=== PATIENT | male | born 1960 | race Hispanic/Latino ===

== ENCOUNTER 2018-08-24 11:14 | Emergency (ER) | payer BC ==
[2018-08-24 11:28] VITALS: RESP 18
[2018-08-24 11:30] VITALS: BMI 26.3
[2018-08-24] MEDS ORDERED: Sodium Chloride 0.9% 1,000 ML IV STA (11:47)
[2018-08-24 12:20] LABS: BASO # 0.11 K/mm3 (0.0-2.0); BASO % 1.8 % (0.0-3.0); EOS # 0.3 (0.0-0.7); HEMOGLOBIN 15.8 g/dL (14.0-18.0); LYMPH # 2.1 (1.2-3.4); LYMPH % 32.8 % (22.0-35.0); MEAN CELL VOLUME 91.2 fl (80.0-105.0); MEAN CORPUSCULAR HEMOGLOBIN 30.3 pg (25.0-35.0); MEAN CORPUSCULAR HGB CONC 33.3 g/dl (31.0-37.0); MEAN PLATELET VOLUME 9.4 fl (7.0-11.0); MONO # 0.3 (0.1-0.6); MONO % 5.4 % (1.0-6.0); RBC 5.21 10^6/uL (3.5-6.1); RED CELL DISTRIBUTION WIDTH 13.4 % (11.5-14.5); WHITE BLOOD COUNT 6.3 10^3/uL (4.5-11.0)
--- NOTE | 2018-08-24 12:24 | ED PDOC ---
Arrival/HPI - General Chief Complaint: Syncope Time Seen by Provider: 08/24/18 11:39 Historian: Patient - History of Present Illness Narrative History of Present Illness (Text): 08/24/18 12:25 57 year old male, with no significant past medical history, who presents to the Emergency department s/p syncopal episode earlier today. Patient reports he could not pass urine 1 week ago, causing him to visit the urology office of Dr. Humphries. He reports he stood to give urine, when he felt nauseous and had "hot flashes", and soon after fainted. Patient states he currently feeling fine, and denies any symptoms currently. He denies any fever, chills, headache, shortness of breath, vomiting, chest pain, or any other complaints. Time/Duration: 1-3 hours Symptom Onset: Gradual Symptom Course: Unchanged Activities at Onset: Light Context: Home Past Medical History - Provider Review Nursing Documentation Reviewed: Yes - Infectious Disease Hx of Infectious Diseases: None - Genitourinary/Gynecological Other/Comment: urinary retention - Psychiatric Hx Substance Use: No - Anesthesia Hx Anesthesia: No Family/Social History - Physician Review Nursing Documentation Reviewed: Yes Family/Social History: Unknown Family HX Smoking Status: Never Smoked Hx Alcohol Use: No Hx Substance Use: No Allergies/Home Meds Allergies/Adverse Reactions: Allergies No Known Allergies Allergy (Verified 08/24/18 11:30) Home Medications: Home Meds Medication Instructions Recorded Confirmed Tamsulosin [Flomax] 1 tab PO DAILY 08/24/18 08/24/18 Review of Systems - Physician Review All systems were reviewed & negative as marked: Yes - Review of Systems Constitutional: absent: Fevers Respiratory: absent: SOB, Cough Cardiovascular: absent: Chest Pain Gastrointestinal: Nausea. absent: Abdominal Pain, Vomiting Genitourinary Male: absent: Dysuria Musculoskeletal: absent: Back Pain, Neck Pain Skin: absent: Rash Neurological: absent: Headache, Dizziness Physical Exam Vital Signs Reviewed: Yes Vital Signs Temp Pulse Resp BP Pulse Ox 08/24/18 11:28 97.5 F L 60 18 113/75 98 Temperature: Afebrile Blood Pressure: Normal Pulse: Regular Respiratory Rate: Normal Appearance: Positive for: Well-Appearing, Non-Toxic, Comfortable Pain Distress: None Mental Status: Positive for: Alert and Oriented X 3 - Systems Exam Head: Present: Atraumatic, Normocephalic Pupils: Present: PERRL Extroacular Muscles: Present: EOMI Conjunctiva: Present: Normal Mouth: Present: Moist Mucous Membranes Neck: Present: Normal Range of Motion Respiratory/Chest: Present: Clear to Auscultation, Good Air Exchange. No: Respiratory Distress, Accessory Muscle Use Cardiovascular: Present: Regular Rate and Rhythm, Normal S1, S2. No: Murmurs Abdomen: No: Tenderness, Distention, Peritoneal Signs Back: Present: Normal Inspection Upper Extremity: Present: Normal Inspection. No: Cyanosis, Edema Lower Extremity: Present: Normal Inspection. No: Edema Neurological: Present: Speech Normal Skin: Present: Warm, Dry, Normal Color. No: Rashes Psychiatric: Present: Alert, Oriented x 3, Normal Insight, Normal Concentration Medical Decision Making ED Course and Treatment: 08/24/18 12:22 Impression: 57 year old male, with no significant past medical history, who presents to the Emergency department s/p syncopal episode earlier today. Differential Diagnosis included but are not limited to: Plan: -- Labs -- EKG -- IV Fluids -- Reassess and disposition Prior Visits: Notes and results from previous visits were reviewed. Progress Notes: - RAD Interpretation Narrative RAD Interpretations (Text): 08/24/18 15:50 CT head reviewed by radiologist, shows: Normal CT of the Head. Pop Singer: Radiologist - EKG Interpretation EKG Interpretation (Text): 08/24/18 15:48 EKG reviewed, shows: Sinus bradycardia at [address] elevation. No T wave. Interpreted by ED Physician: Yes - Medication Orders Current Medication Orders: Sodium Chloride (Sodium Chloride 0.9%) 1,000 mls @ 999 mls/hr IV .Q1H1M STA Stop: 08/24/18 12:47 Last Admin: 08/24/18 12:12 Dose: 999 mls/hr eMAR Start Stop Document 08/24/18 12:12 [place] (Rec: 08/24/18 12:13 [place] [facility] [id number]) Intravenous Solution Start Date 08/24/18 Start Time 12:13 End Date 08/24/18 End time 13:14 Total Infusion Time 61 - Scribe Statement The provider has reviewed the documentation as recorded by the Scribamanda Buenrostro All medical record entries made by the Scribe were at my direction and personally dictated by me. I have reviewed the chart and agree that the record accurately reflects my personal performance of the history, physical exam, medical decision making, and the department course for this patient. I have also personally directed, reviewed, and agree with the discharge instructions and disposition. Disposition/Present on Arrival - Present on Arrival Any Indicators Present on Arrival: No History of DVT/PE: No History of Uncontrolled Diabetes: No Urinary Catheter: No History of Decub. Ulcer: No History Surgical Site Infection Following: None - Disposition Have Diagnosis and Disposition been Completed?: Yes Diagnosis: Vasovagal response Disposition: HOME/ ROUTINE Disposition Time: 14:03 Patient Plan: Discharge Condition: IMPROVED Discharge Instructions (ExitCare): Syncope (ED) Print Language: [place] Additional Instructions: All medical record entries made by the Scribe were at my direction and personally dictated by me. I have reviewed the chart and agree that the record accurately reflects my personal performance of the history, physical exam, medical decision making, and the department course for this patient. I have also personally directed, reviewed, and agree with the discharge instructions and disposition. Please follow up with your PCP in 1 week Referrals: Eliezer Guallpa MD [Primary Care Provider] - Follow up with primary Forms: [facility] ([employer])
[2018-08-24 12:31] LABS: ALB/GLOB RATIO 1.4 (1.1-1.8); ALBUMIN 4.7 g/dL (3.0-4.8); ALT/SGPT 22 U/L (7-56); AST/SGOT 36 U/L (17-59); BLOOD UREA NITROGEN 23 mg/dL (7-21); CALCIUM 9.8 mg/dL (8.4-10.5); GFR NON-AFRICAN AMERICAN 57
--- NOTE | 2018-08-24 13:56 | CT ---
Date of service: 08/24/2018 PROCEDURE: CT HEAD WITHOUT CONTRAST. HISTORY: syncope COMPARISON: None available. TECHNIQUE: Axial computed tomography images were obtained through the head/brain without intravenous contrast. Radiation dose: Total exam DLP = 1029.78 mGy-cm. This CT exam was performed using one or more of the following dose reduction techniques: Automated exposure control, adjustment of the mA and/or kV according to patient size, and/or use of iterative reconstruction technique. FINDINGS: HEMORRHAGE: No intracranial hemorrhage. BRAIN: No mass effect or edema. No atrophy or chronic microvascular ischemic changes. VENTRICLES: Unremarkable. No hydrocephalus. CALVARIUM: Unremarkable. PARANASAL SINUSES: Unremarkable as visualized. No significant inflammatory changes. MASTOID AIR CELLS: Unremarkable as visualized. No inflammatory changes. OTHER FINDINGS: None. IMPRESSION: Normal CT of the Head.
[2018-08-24 14:38] VITALS: BP 115/75; PULSE 63; TEMP 97.6; O2SAT 100
--- NOTE | 2018-08-24 20:40 | CARD ---
APPROVED REPORT Date of service: 08/24/2018 EKG Measurement Heart [id number] <Conclusion> Sinus bradycardia Otherwise normal ECG
== END 2018-08-24 14:43 | disposition home or self-care (01) ==
LOC: ED 11:14
DX: R55 Syncope and collapse (principal)
CPT/HCPCS: 70450; 80053; 83735; 85025; 93005; 96360; 99285; J7030

== ENCOUNTER 2018-10-11 09:14 | Day surgery (SDC) | payer BC ==
[2018-08-25 08:05] VITALS: BMI 25.6
[2018-10-11] MEDS ORDERED: cefTRIAXone (Rocephin) 1 gm Inj ONE (11:41)
[2018-10-11] MEDS ORDERED: Midazolam 2 MG/2 ML VIAL ONE (11:55)
[2018-10-11] MEDS ORDERED: Lidocaine PF 2% (5 ml) Inj (For Cardiac Arrhy) ONE (11:55)
[2018-10-11] MEDS ORDERED: Propofol 10 mg/ml Inj (20 ML) ONE (11:55)
[2018-10-11] MEDS ORDERED: HYDROmorphone 0.5 mg/0.5 ml ISec IVP PRN (13:23)
[2018-10-11] MEDS ORDERED: Lactated Ringer's 1,000 ML IV SCH (13:30)
[2018-10-11] MEDS ORDERED: HYDROmorphone 0.5 mg/0.5 ml ISec ONE (14:08)
[2018-10-11 15:10] VITALS: RESP 20; TEMP 99.4
[2018-10-11 15:53] VITALS: O2SAT 93
[2018-10-11 18:33] VITALS: BP 138/82; PULSE 92
--- NOTE | 2018-10-12 03:21 | OP ---
PROCEDURE DATE: 10/11/2018 PREOPERATIVE DIAGNOSES: Bladder outlet obstruction, urinary retention, benign prostatic hypertrophy. POSTOPERATIVE DIAGNOSES: Bladder outlet obstruction, urinary retention, benign prostatic hypertrophy. PROCEDURE: Cystoscopy, prostate laser vaporization with a GreenLight laser. SPECIMENS: There were none. DRAINS: There was a 22-Yakut three-way Ingram catheter. COMPLICATIONS: There were none. OPERATIVE FINDINGS: After informed consent was obtained, the patient was taken to the operating room, placed on operating table. Anesthesia was administered. The patient was placed in dorsal lithotomy position and prepped and draped in the usual sterile fashion. The patient received intravenous antibiotics prior to the start of the procedure. A 21-Yakut laser cystoscope was placed in the patient's urethra with a visualizing obturator and advanced proximally under direct vision until the bladder was entered. A full survey inspection of bladder was then performed which revealed no stones, papillary tumors or foreign bodies. There was some catheter reaction noted on the posterior wall from the patient's indwelling Ingram. The patient had grade 1-2 trabeculation noted. Both ureteral orifices were visualized and appeared within normal limits. At this point, the scope was withdrawn to the level of the verumontanum. The view from the verumontanum revealed a markedly enlarged, occlusive appearing lateral lobes with some mild median lobe growth. At this point, a GreenLight laser fiber was obtained. It was passed through the scope and vaporization of the prostate was undertaken. The prostate was systematically vaporized starting from the bladder neck proximally and working to the verumontanum distally. The median lobe tissue was vaporized first to an appropriate level. Then both lateral lobes were vaporized along with apical tissue at the 12 o'clock position. Any bleeding points encountered during the vaporization were then controlled using the cauterization feature on the laser. After all the obstructing tissue had been vaporized, the view from the verumontanum revealed a widely opened prostatic fossa. The irrigation was turned off and inspection was made for any bleeding points. There was no active bleeding noted. The bladder was inspected. Both ureteral orifices were visualized with no damage. There was a small amount of debris in the bladder, which was able to be irrigated out through the scope. The final inspection was then made. The channel was widely opened. There was good hemostasis, and at this point, the procedure was complete. The bladder was then drained and a 22-Yakut three-way Ingram catheter was passed and placed to continuous bladder irrigation. The patient tolerated the procedure well. He was returned to the supine position and taken to the recovery room awake and in stable condition. Franck Humphries MD
== END 2018-10-11 16:30 | disposition home or self-care (01) ==
LOC: SDS 09:14
PROVIDERS: ATTEND Urology
DX: N32.0 Bladder-neck obstruction (principal); N40.1 Benign prostatic hyperplasia with lower urinary tract symptoms; N13.8 Other obstructive and reflux uropathy; R33.8 Other retention of urine; Z85.828 Personal history of other malignant neoplasm of skin
CPT/HCPCS: 52648; J0696; J1170; J2250; J2405; J2704; J3010; J7120